=== PATIENT | female | born 1960 | race American Indian/Alaskan Native ===

== ENCOUNTER 2021-05-20 10:21 | Outpatient (CLI) | payer OTHER ==
--- NOTE | 2021-05-20 11:38 | XRay Report ---
LUMBOSACRAL SPINE 3 VIEWS INDICATION: Back pain. COMPARISON: None. IMPRESSION: Normal alignment. No significant degenerative disc disease. There is mild facet arthrop athy in the lower lumbar spine. The sacrum and SI joints are unremarkable. No acute osseous or soft tissue abnormality. BILATERAL KNEES 3 VIEWS INDICATION: Bilateral knee pain. COMPARISON: None. IMPRESSION: No acute osseous or soft tissue abnormality. No significant DJD. LEFT ANKLE 3 VIEWS INDICATION: LEFT ANKLE PAIN. COMPARISON: None. IMPRESSION: Chronic healed fractures of the distal fibula and tibia are suspected. No acute osseous abnormality or bone lesion. There are mild posttraumatic or osteoarthritic changes at the ankle join t. The talar dome is intact. The hindfoot is unremarkable. Signer Name: Roel Fuentes Jr, MD Signed: 05/20/2021 11:34 AM Workstation Name: [id number]
== END 2021-05-20 10:22 | disposition home or self-care (01) ==
LOC: XRAY 10:21
PROVIDERS: ATTEND Internal Medicine
DX: M19.072 Primary osteoarthritis, left ankle and foot (principal); M25.562 Pain in left knee; M25.561 Pain in right knee; M54.50 Low back pain, unspecified
CPT/HCPCS: 72100